=== PATIENT | female | born 1950 | race Caucasian/White ===

== ENCOUNTER 2020-03-01 13:32 | Emergency (ER) | payer MEDICARE ==
--- NOTE | 2020-03-01 13:59 | ER Document Report ---
HPI - HPI Patient complains to provider of: Right wrist and hand pain Time Seen by Provider: 03/01/20 13:56 Context: 69-year-old female presents to the emergency room after a trip and fall at home 3 days ago. Patient states she fell backward hitting her right hand on the floor. There was no head trauma or or other injuries. States she woke up the next day with a moderate amount of swelling. Has been keeping it wrapped, taking ibuprofen, warm soaks with some relief. No history of previous trauma or injury to her right wrist or hand. Patient is right-handed. Associated Symptoms: None Exacerbated by: Movement Relieved by: Remaining still Similar symptoms previously: No Recently seen / treated by doctor: No - ROS Systems Reviewed and Negative: Yes All other systems reviewed and negative - NEURO Neurology: DENIES: Weakness - REPRODUCTIVE Reproductive: DENIES: : - MUSCULOSKELETAL Musculoskeletal: REPORTS: Extremity pain - DERM Skin Color: Normal Skin Problems: None Past Medical History - General Information source: Patient - Social History Smoking Status: Never Smoker Frequency of alcohol use: None Drug Abuse: None Family History: Reviewed & Not Pertinent Vertical Provider Document - CONSTITUTIONAL Agree With Documented VS: Yes Exam Limitations: No Limitations General Appearance: Mild Distress - INFECTION CONTROL TRAVEL OUTSIDE OF THE [place] IN LAST 30 DAYS: No - HEENT HEENT: Atraumatic, Normocephalic - NECK Neck: Normal Inspection, Supple - RESPIRATORY Respiratory: Breath Sounds Normal, No Respiratory Distress - CARDIOVASCULAR Cardiovascular: Regular Rate, Regular Rhythm, No Murmur - MUSCULOSKELETAL/EXTREMETIES Musculoskeletal/Extremeties: FROM, Non-Tender - Right wrist and right hand with full range of motion. Nontender to palpation. No snuffbox tenderness no swelling. No obvious deformity noted. Hybrid Car Mechanic strength equal and adequate bilaterally - NEURO Level of Consciousness: Awake, Alert, Appropriate Motor/Sensory: No Motor Deficit, No Sensory Deficit Notes: Positive right radial pulse. Capillary refill less than 3 seconds. - DERM Integumentary: Warm, Dry, No Rash Course - Re-evaluation Re-evalutation: 03/01/20 15:08 Patient is pain-free on exam. Full range of motion. Neurovascularly intact. Reviewed negative x-ray results with patient except for some osteoarthritis. She was counseled to continue to wear her wrist brace, ibuprofen as needed. Outpatient follow-up with orthopedics if pain persist for more than 3 more days. On-call physician was provided. Patient was given strict return to the emergency room guidelines. Return for any new or worsening symptoms. All questions were answered. Patient verbalized understanding and agrees with plan of care. - Vital Signs Vital signs: Temp Pulse Resp BP Pulse Ox 98.0 F 94 16 134/66 H 97 03/01/20 13:35 03/01/20 13:35 03/01/20 13:35 03/01/20 13:35 03/01/20 13:35 - Laboratory Results Critical Laboratory Results Reviewed: No Critical Results - Radiology Results Critical Radiology Results Reviewed: No Critical Results Discharge - Discharge Clinical Impression: Contusion of right wrist, initial encounter, Contusion of right hand, initial encounter Osteoarthritis of hand, right Qualifiers: Osteoarthritis type: unspecified Qualified Code(s): M19.041 - Primary osteoarthritis, right hand Condition: Stable Disposition: HOME, SELF-CARE Instructions: Contusion ([facility]), Osteoarthritis ([facility]), Wrist Sprain ([facility]) Additional Instructions: Continue with brace as needed for comfort. Tylenol and or Motrin as needed for pain. Outpatient follow-up with orthopedics if pain persist for more than 3 days. Return to the emergency room for any new or worsening symptoms. Forms: Return to Work Referrals: ALISIA LIN JR, DO [ACTIVE PROVISIONAL STAFF] - Follow up as needed
--- NOTE | 2020-03-01 14:57 | RADIOLOGY REPORT (SQ) ---
EXAM DESCRIPTION: HAND RIGHT 3 VIEWS; WRIST RIGHT 3 VIEWS IMAGES COMPLETED DATE/TIME: 03/01/2020 1:23 pm REASON FOR STUDY: injury COMPARISON: None. EXAM PARAMETERS: NUMBER OF VIEWS: Six views. TECHNIQUE: AP, lateral and oblique radiographic images acquired of the right hand and wrist. LIMITATIONS: None. FINDINGS: MINERALIZATION: Normal. BONES: No acute fracture or dislocation. No worrisome bone lesions. Mild osteoarthritis at the righ t 1st digit carpometacarpal joint. JOINTS: No effusions. SOFT TISSUES: No soft tissue swelling. No foreign body. OTHER: No other significant finding. IMPRESSION: No acute fracture or dislocation of the right wrist or hand. Mild osteoarthritis at the 1st digit carpometacarpal joint. TECHNICAL DOCUMENTATION: JOB ID: [id number] 2010 [employer]- All Rights Reserved Reading location - IP/workstation name: [email or web address]
--- NOTE | 2020-03-01 14:57 | RADIOLOGY REPORT (SQ) ---
EXAM DESCRIPTION: HAND RIGHT 3 VIEWS; WRIST RIGHT 3 VIEWS IMAGES COMPLETED DATE/TIME: 03/01/2020 1:23 pm REASON FOR STUDY: injury COMPARISON: None. EXAM PARAMETERS: NUMBER OF VIEWS: Six views. TECHNIQUE: AP, lateral and oblique radiographic images acquired of the right hand and wrist. LIMITATIONS: None. FINDINGS: MINERALIZATION: Normal. BONES: No acute fracture or dislocation. No worrisome bone lesions. Mild osteoarthritis at the righ t 1st digit carpometacarpal joint. JOINTS: No effusions. SOFT TISSUES: No soft tissue swelling. No foreign body. OTHER: No other significant finding. IMPRESSION: No acute fracture or dislocation of the right wrist or hand. Mild osteoarthritis at the 1st digit carpometacarpal joint. TECHNICAL DOCUMENTATION: JOB ID: [id number] 2010 [employer]- All Rights Reserved Reading location - IP/workstation name: [email or web address]
[2020-03-01 15:49] VITALS: BP 131/77
== END 2020-03-01 15:47 | disposition home or self-care (01) ==
LOC: ER 13:32
DX: S60.211A Contusion of right wrist, initial encounter (principal); S60.221A Contusion of right hand, initial encounter; W19.XXXA Unspecified fall, initial encounter; Y92.009 Unspecified place in unspecified non-institutional (private) residence as the place of occurrence of the external cause; M18.11 Unilateral primary osteoarthritis of first carpometacarpal joint, right hand
CPT/HCPCS: 99283